=== PATIENT | female | born 1970 | race Caucasian/White ===

== ENCOUNTER 2018-02-11 12:31 | Emergency (ER) | payer OTHER ==
[2018-02-11] MEDS: ACETAMINOPHEN 325 MG TAB PO (13:14)
[2018-02-11] MEDS: ONDANSETRON (ODT) 4 MG TAB ODT (13:50)
== END 2018-02-11 15:18 | disposition home or self-care (01) ==
LOC: FTE 12:31
DX: H61.21 Impacted cerumen, right ear (principal)
CPT/HCPCS: 69209; 99283-25